=== PATIENT | male | born 1955 | race Caucasian/White ===

== ENCOUNTER 2020-10-07 08:40 | Inpatient (IN) | payer OTHER ==
[2020-10-01 14:53] VITALS: BMI 30.4
[2020-10-07] MEDS ORDERED: MIDAZOLAM HCL 2 MG/2 ML SINGLE DOSE VIAL ONE ×2 (10:27→11:57)
[2020-10-07] MEDS ORDERED: BUPIVACAINE LIPOSOME/PF (EXPAREL) 266 MG/20 ML VIAL ONE (10:27)
[2020-10-07] MEDS ORDERED: SODIUM CHLORIDE 0.9% P/F 10 ML VIAL IJ ONE (10:27)
[2020-10-07] MEDS ORDERED: PROPOFOL 20 ML ONE ×3 (11:06)
[2020-10-07] MEDS ORDERED: VANCOMYCIN 1,000 MG VIAL (RESTRICTED TO ID ONLY) ONE (12:21)
[2020-10-07] MEDS ORDERED: BUPIVICAINE 0.25%/MORPH PF/KETOROLAC - 51ML DISP.SYRINGE IA ONE ×2 (13:53→14:13)
[2020-10-07] MEDS ORDERED: VANCOMYCIN 1,000 MG VIAL (RESTRICTED TO ID ONLY) IVPB ONE (14:11)
[2020-10-07] MEDS ORDERED: ONDANSETRON 4 MG/2 ML VIAL IVPUSH PRN ×2 (15:02→15:16)
[2020-10-07] MEDS ORDERED: MAG HYDROX/AL HYDROX/SIMETH 30 ML UNIT-DOSE CUP PO PRN (15:02)
[2020-10-07] MEDS ORDERED: LACTATED RINGERS SOLUTION 1,000 ML IV SCH (15:15)
[2020-10-07] MEDS: ACETAMINOPHEN 325 MG TABLET (FP) PO SCH ×3 (15:31→21:03)
[2020-10-07] MEDS: SENNOSIDES/DOCUSATE COMBO (SENNA PLUS) TABLET (UD) PO SCH (21:03)
[2020-10-07] MEDS: oxyCODONE HCL 5 MG TABLET PO PRN (21:03)
[2020-10-07] MEDS: GABAPENTIN 300 MG CAPSULE PO SCH (21:03)
[2020-10-07] MEDS: ATORVASTATIN CA 80 MG TABLET (FP) PO SCH (23:25)
[2020-10-07] MEDS: BUDESONIDE/FORMETEROL FUMARATE 160/4.5 mcg INHALER IH SCH (23:25)
[2020-10-07] MEDS: CEFAZOLIN 2 GM/D5W 2 GM/50 ML ML IVPB SCH (23:25)
[2020-10-08] MEDS: ACETAMINOPHEN 325 MG TABLET (FP) PO SCH ×4 (04:30→21:23)
[2020-10-08] MEDS: oxyCODONE HCL 5 MG TABLET PO PRN ×3 (05:25→13:34)
[2020-10-08] MEDS: CEFAZOLIN 2 GM/D5W 2 GM/50 ML ML IVPB SCH ×2 (06:44→16:15)
[2020-10-08 07:35] LABS: HEMATOCRIT 33.3 % (35.4-49); HEMOGLOBIN 10.8 GM/dl (11.7-16.9); MCH 29.5 pg (25.7-33.7); MCHC 32.5 g/dl (32.0-35.9); MEAN CELL VOLUME 90.8 fl (80-96); MEAN PLT VOLUME 9.6 fl (7.5-11.1); PLATELET COUNT 160 K/MM3 (134-434); RBC 3.67 M/mm3 (4.00-5.60); RDW 13.3 % (11.9-15.9); WHITE BLOOD COUNT 11.9 K/mm3 (4.0-10.8)
[2020-10-08 07:47] LABS: POTASSIUM 3.8 mmol/L (3.5-5.1)
[2020-10-08] MEDS ORDERED: TAMSULOSIN HCL 0.4 MG CAP PO SCH (08:30)
[2020-10-08] MEDS: ASPIRIN 325 MG TABLET PO SCH ×2 (09:22→21:24)
[2020-10-08] MEDS: metoPROLOL SUCCINATE 25 MG TAB.SR.24H (FP) PO SCH (09:22)
[2020-10-08] MEDS: PANTOPRAZOLE 40 MG TABLET PO SCH (09:22)
[2020-10-08] MEDS: GABAPENTIN 300 MG CAPSULE PO SCH ×2 (09:22→21:24)
[2020-10-08] MEDS: MULTIVITAMINS (DAILY MVI) TABLET (FP) PO SCH (09:22)
[2020-10-08] MEDS: ISOSORBIDE MONONITRATE 60 MG TAB.SR.24H (FP) PO SCH (09:22)
[2020-10-08] MEDS: SENNOSIDES/DOCUSATE COMBO (SENNA PLUS) TABLET (UD) PO SCH ×2 (09:24→21:24)
[2020-10-08] MEDS: BUDESONIDE/FORMETEROL FUMARATE 160/4.5 mcg INHALER IH SCH ×2 (09:24→21:26)
[2020-10-08] MEDS: ATORVASTATIN CA 80 MG TABLET (FP) PO SCH (21:24)
[2020-10-08] MEDS: TAMSULOSIN HCL 0.4 MG CAP PO SCH (21:24)
[2020-10-08] MEDS: MECLIZINE HCL 12.5 MG TABLET PO SCH (22:52)
[2020-10-09] MEDS: oxyCODONE HCL 5 MG TABLET PO PRN ×3 (00:06→09:49)
[2020-10-09] MEDS: ACETAMINOPHEN 325 MG TABLET (FP) PO SCH ×2 (03:43→09:48)
[2020-10-09 08:13] LABS: HEMATOCRIT 29.8 % (35.4-49); HEMOGLOBIN 9.9 GM/dl (11.7-16.9); MCH 30.3 pg (25.7-33.7); MCHC 33.1 g/dl (32.0-35.9); MEAN CELL VOLUME 91.4 fl (80-96); MEAN PLT VOLUME 9.6 fl (7.5-11.1); PLATELET COUNT 133 K/MM3 (134-434); RBC 3.26 M/mm3 (4.00-5.60); RDW 13.3 % (11.9-15.9); WHITE BLOOD COUNT 9.2 K/mm3 (4.0-10.8)
[2020-10-09 09:31] LABS: BILIRUBIN,TOTAL 0.6 mg/dl (0.2-1); CALCIUM 8.1 mg/dl (8.5-10); CREATININE 0.8 mg/dl (0.55-1.3); MAGNESIUM 1.5 mg/dL (1.8-2.4); POTASSIUM 3.7 mmol/L (3.5-5.1); TOT PROT 5.1 g/dl (6.4-8.2)
[2020-10-09] MEDS ORDERED: MAGNESIUM SULF 50% (8.12 MEQ/2 ML-1 GM VIAL) IVPB ONE (09:33)
[2020-10-09] MEDS: TAMSULOSIN HCL 0.4 MG CAP PO SCH (09:46)
[2020-10-09] MEDS: ISOSORBIDE MONONITRATE 60 MG TAB.SR.24H (FP) PO SCH (09:46)
[2020-10-09] MEDS: GABAPENTIN 300 MG CAPSULE PO SCH (09:46)
[2020-10-09] MEDS: MULTIVITAMINS (DAILY MVI) TABLET (FP) PO SCH (09:46)
[2020-10-09] MEDS: PANTOPRAZOLE 40 MG TABLET PO SCH (09:46)
[2020-10-09] MEDS: SENNOSIDES/DOCUSATE COMBO (SENNA PLUS) TABLET (UD) PO SCH (09:47)
[2020-10-09] MEDS: MECLIZINE HCL 12.5 MG TABLET PO SCH (09:47)
[2020-10-09] MEDS: metoPROLOL SUCCINATE 25 MG TAB.SR.24H (FP) PO SCH (09:47)
[2020-10-09] MEDS: BUDESONIDE/FORMETEROL FUMARATE 160/4.5 mcg INHALER IH SCH (09:53)
[2020-10-09] MEDS: ASPIRIN 325 MG TABLET PO SCH (09:53)
[2020-10-09 13:29] VITALS: BP 115/57; PULSE 70; TEMP 98.9
== END 2020-10-09 13:14 | disposition home or self-care (01) | DRG 470 ==
LOC: FM/S 08:40
PROVIDERS: ADMIT Orthopaedic Surgery Sports Medicine; ATTEND Nurse Practitioner Acute Care
PROC: 8E0Y0CZ Robotic Assisted Procedure of Lower Extremity, Open Approach (ICD-10-PCS; 2020-10-07)
PROC: 0SRC0J9 Replacement of Right Knee Joint with Synthetic Substitute, Cemented, Open Approach (ICD-10-PCS; principal; 2020-10-07 12:26)
DX: M17.11 Unilateral primary osteoarthritis, right knee (principal); E78.5 Hyperlipidemia, unspecified; I25.10 Atherosclerotic heart disease of native coronary artery without angina pectoris; G47.33 Obstructive sleep apnea (adult) (pediatric); J44.9 Chronic obstructive pulmonary disease, unspecified; N40.1 Benign prostatic hyperplasia with lower urinary tract symptoms; R33.9 Retention of urine, unspecified
CPT/HCPCS: 36415; 73560-TC-RT-FY; 80048; 80053; 83735; 85027; 88304-TC; 88311-TC; 94760; 97010-GP; 97116-GP; 97162-GP